=== PATIENT | female | born 1950 | race African-American/Black ===

== ENCOUNTER 2018-01-19 09:24 | Day surgery (SDC) | payer OTHER ==
[~2018-01-19 09:24] MED LIST: MORPHINE SULFATE 4 MG/ML DISP.SYRIN. IV; PROCHLORPERAZINE 10 MG/2 ML VIAL. IV; fentaNYL PF VIAL 100 MCG/2 ML VIAL IV
[2018-01-19] MEDS: IV RINGERS,LACTATED 1000ML 1,000 ML IV (10:18)
[2018-01-19] MEDS ORDERED: SEVOFLURANE > 120 MINUTES. IH (10:39)
[2018-01-19] MEDS ORDERED: fentaNYL PF VIAL 100 MCG/2 ML VIAL ×2 (10:40→14:00)
[2018-01-19] MEDS ORDERED: KETOROLAC 30 MG/ML INJ FOR OR. INJ (10:40)
[2018-01-19] MEDS ORDERED: PROPOFOL 20 ML IV (10:40)
[2018-01-19] MEDS ORDERED: MIDAZOLAM HCL/PF 2 MG/2 ML VIAL. (10:40)
[2018-01-19] MEDS ORDERED: ONDANSETRON PF 4 MG/2 ML VIAL. (10:40)
[2018-01-19] MEDS ORDERED: LIDOCAINE 2% PF Vial for OR 5 ML VIAL. (10:40)
[2018-01-19] MEDS ORDERED: DEXAMETHASONE SOD PHOS 20 MG/5 ML VIAL. (10:40)
[2018-01-19] MEDS ORDERED: IV RINGERS,LACTATED 1000ML 1,000 ML IV (11:14)
[2018-01-19] MEDS ORDERED: LIDOCAINE 1% PF 2 ML VIAL. ID (11:15)
[2018-01-19] MEDS ORDERED: HYDROmorphone 2 MG/ML VIAL IV (11:15)
[2018-01-19] MEDS ORDERED: MORPHINE SULFATE 2 MG/ML DISP.SYRIN. IV (11:15)
[2018-01-19] MEDS ORDERED: ONDANSETRON PF 4 MG/2 ML VIAL. IV (11:15)
[2018-01-19] MEDS ORDERED: fentaNYL PF VIAL 100 MCG/2 ML VIAL IV ×2 (11:15)
[2018-01-19] MEDS ORDERED: PROCHLORPERAZINE 10 MG/2 ML VIAL. IV (11:15)
[2018-01-19] MEDS: METHYLENE BLUE 1% 10 ML VIAL. (12:16)
[2018-01-19] MEDS ORDERED: ePHEDrine PF IN SALINE 50 MG/5 ML DISP.SYRIN IV (12:44)
[2018-01-19] MEDS: LIDOCAINE 1% PF 2 ML VIAL. ID (13:43)
[2018-01-19] MEDS: ONDANSETRON PF 4 MG/2 ML VIAL. IV (13:46)
[2018-01-19] MEDS: fentaNYL PF VIAL 100 MCG/2 ML VIAL IV (14:06)
== END 2018-01-19 15:30 | disposition home or self-care (01) ==
LOC: SURG 09:24
DX: N60.31 Fibrosclerosis of right breast (principal); N60.81 Other benign mammary dysplasias of right breast; I10 Essential (primary) hypertension; K21.9 Gastro-esophageal reflux disease without esophagitis; E66.9 Obesity, unspecified; Z90.710 Acquired absence of both cervix and uterus; Z98.890 Other specified postprocedural states; Z79.899 Other long term (current) drug therapy
CPT/HCPCS: 19120; 88305; J0690; J1100; J1885; J2250; J2405; J2704; J3010; Q9968

== ENCOUNTER 2021-03-18 08:11 | Day surgery (SDC) | payer MEDICARE ==
[~2021-03-18] VITALS: Ht 160 cm; Wt 94.0 kg
[~2021-03-18 08:11] MED LIST changes: +AMLO-186 PO; +ASPI-482 PO; +CHOL100013 PO; -MORPHINE SULFATE 4 MG/ML DISP.SYRIN. IV; +OMEG100020 PO; -PROCHLORPERAZINE 10 MG/2 ML VIAL. IV; +ceFAZolin SODIUM IV Push 1 GM VIAL. IVP PRN; -fentaNYL PF VIAL 100 MCG/2 ML VIAL IV
[2021-03-18 08:47] VITALS: BP 124/57
[2021-03-18] MEDS ORDERED: SCOPOLAMINE 1.5MG PATCH. TD ONE (09:00)
[2021-03-18] MEDS ORDERED: IV RINGERS,LACTATED 1000ML 1,000 ML IV SCH ×2 (09:00→12:45)
[2021-03-18] MEDS ORDERED: BUPIVACAINE-EPI 0.5%-1:200000 MPF 30 ML VIAL. ONE (09:18)
--- NOTE | 2021-03-18 09:31 | PREOP HP ---
DATE OF SERVICE: 03/18/2021 HISTORY OF PRESENT ILLNESS: The patient is referred because of masses of the anterior chest wall. The patient has noted these and these are becoming more painful and more numerous. You cannot see them through the skin, but it definitely are there and does cause her some discomfort. PAST MEDICAL HISTORY: Shows normal childhood diseases. She has hypertension, but does not have diabetes or other illnesses to her knowledge. PAST SURGICAL HISTORY: Included a right breast biopsy, which was benign and reduction mammoplasty. ALLERGIES: She does not have allergies. MEDICATIONS: She is not taking any other medicines, though she may begin to take some medicine for anxiety as she has some family members with significant illnesses. Otherwise, she is doing relatively well. She is concerned about these painful masses of the anterior chest wall. SOCIAL HISTORY: Shows that she does not smoke, drink or use illicit drugs, but did take aspirin, but has stopped taking that. FAMILY HISTORY: Positive in that she has been having 2 sisters with breast cancer, one is dealing with now. Otherwise, history was noncontributory. REVIEW OF SYSTEMS: Basically negative since she is doing well except for these masses of the anterior chest wall over and on each side of the sternum, going down to the xiphoid. As stated before, these are not skin eruptions, but under the skin. PHYSICAL EXAMINATION: GENERAL: Shows an alert female in no acute distress. HEAD, EYES, EARS, NOSE AND THROAT: Grossly normal. EXTREMITIES: Examination of extremities grossly normal. BREASTS: Unremarkable except for the scars of the previous surgery. Axilla was negative as stated before. CHEST: Clear to auscultation bilaterally. HEART: Had no murmurs, heaves, friction rubs or thrills, and the rate was 75 beats per minute and regular. SKIN: Grossly normal. The anterior chest wall; however, did have on either side of the sternum, about inch below the sternal notch. There are masses, 1 or 2 on either side and about 2-3 cm in size and also has a large wound over the xiphoid which is about 2 cm or more in size. She definitely has these lesions that are present there in the subcutaneous, was deep to the skin and are painful. There is no evidence of infection, however. IMPRESSION: 1. Hypertension. 2. Masses anterior chest wall. AL/JACKY DR: Milka TID: [id number]
--- NOTE | 2021-03-18 10:43 | PDOC ---
SURGICAL PROGRESS NOTE DATE: 03/18/21 TIME: 10:42 No change in dictated H&P. Vital Signs Vital Signs Date Time Temp Pulse Resp B/P (MAP) Pulse Ox O2 Delivery O2 Flow Rate FiO2 03/18/21 08:53 97.1 74 18 124/57 98 Room Air 97.1 Justicifation of Admission Dx: Justifications for Admission: Justification of Admission Dx: Yes BORIS ROY MD Mar 18, 2021 10:43
--- NOTE | 2021-03-18 10:45 | PDOC ---
SURGICAL PROGRESS NOTE DATE: 03/18/21 TIME: 10:43 Op Note: Surgeon.........................................Emir Pre and post op diag........................Masses sub cut sternum and right UOQ breast Anesthesia.....................................general Procedure.......................................excision mass sternum and left chest wall. Drains...........................................none Fluids............................................see anesth sheet Blood loss......................................10cc condition.......................................satisfactory Vital Signs Vital Signs Date Time Temp Pulse Resp B/P (MAP) Pulse Ox O2 Delivery O2 Flow Rate FiO2 03/18/21 08:53 97.1 74 18 124/57 98 Room Air 97.1 Justicifation of Admission Dx: Justifications for Admission: Justification of Admission Dx: Yes BORIS ROY MD Mar 18, 2021 10:45
[2021-03-18] MEDS ORDERED: fentaNYL PF VIAL 100 MCG/2 ML VIAL ONE ×3 (10:52→13:26)
[2021-03-18] MEDS ORDERED: DEXAMETHASONE SOD PHOS 4 MG/ML VIAL ONE (11:07)
[2021-03-18] MEDS ORDERED: PROPOFOL 10 MG/ML (20ML) VIAL. IV ONE (11:07)
[2021-03-18] MEDS ORDERED: LIDOCAINE 2% PF 5 ML VIAL. ONE (11:07)
[2021-03-18] MEDS ORDERED: ONDANSETRON PF 4 MG/2 ML VIAL. ONE ×2 (11:07→12:52)
[2021-03-18] MEDS ORDERED: SEVOFLURANE 61 TO 120 MINUTES. IH ONE (11:07)
[2021-03-18] MEDS ORDERED: PHENYLEPHRINE in 0.9% NACL PF 1 MG/10 ML SYRINGE. IV ONE (11:07)
[2021-03-18 11:51] LABS: BASO # 0.1 x10^3/uL (0.0-0.2); BASO % 1 % (0-3); EOS # 0.1 x10^3/uL (0.0-0.7); EOS % 2 % (0-3); HEMATOCRIT 40.2 % (36.0-47.0); HEMOGLOBIN 13.2 g/dL (12.0-15.5); LYMPH # 2.2 x10^3/uL (1.0-4.8); LYMPH % 40 % (24-48); MEAN CORPUSCULAR HEMOGLOBIN 29 pg (25-35); MEAN CORPUSCULAR HGB CONC 33 g/dL (31-37); MEAN CORPUSCULAR VOLUME 88 fL (79-100); MONO # 0.5 x10^3/uL (0.0-1.1); MONO % 9 % (0-9); NEUT # 2.6 x10^3/uL (1.8-7.7); NEUT % 48 % (31-73); PLATELET COUNT 257 x10^3/uL (140-400); RED BLOOD COUNT 4.57 x10^6/uL (3.50-5.40); RED CELL DISTRIBUTION WIDTH 14.1 % (11.5-14.5); WHITE BLOOD COUNT 5.4 x10^3/uL (4.0-11.0)
[2021-03-18 12:02] LABS: CALCIUM 8.7 mg/dL (8.5-10.1); CREATININE 0.7 mg/dL (0.6-1.0); GFR 100.1; POTASSIUM 3.9 mmol/L (3.5-5.1)
[2021-03-18 12:08] LABS: ALBUMIN 3.8 g/dL (3.4-5.0); ALBUMIN/GLOBULIN RATIO 1.1 (1.0-1.7); TOTAL BILIRUBIN 0.3 mg/dL (0.2-1.0); TOTAL PROTEIN 7.4 g/dL (6.4-8.2)
--- NOTE | 2021-03-18 12:31 | DISCH ---
DISCHARGE INSTRUCTIONS Condition on Discharge Condition on Discharge: Stable Activity After Discharge Activity Instructions for Disc: Avoid exertion Diet after Discharge Additional Diet Restrictions: clear liquids x 24 hours then pre op diet Wound Incision Care Other wound/incision instructi: chente wounds dry and clean Follow-Up Follow up with: call and make appt to see Dr. richter 1 week BORIS RICHTER MD Mar 18, 2021 12:31
[2021-03-18] MEDS ORDERED: PROCHLORPERAZINE 10 MG/2 ML VIAL. ONE (12:36)
[2021-03-18] MEDS ORDERED: fentaNYL PF VIAL 100 MCG/2 ML VIAL IVP PRN (12:45)
[2021-03-18] MEDS ORDERED: MORPHINE SULFATE 2 MG/ML VIAL. IVP PRN (12:45)
[2021-03-18] MEDS ORDERED: HYDROmorphone 2 MG/ML VIAL IVP PRN (12:45)
[2021-03-18] MEDS: PROCHLORPERAZINE 10 MG/2 ML VIAL. IVP PRN ×2 (12:46→12:57)
[2021-03-18] MEDS: fentaNYL PF VIAL 100 MCG/2 ML VIAL IVP PRN ×3 (12:46→13:28)
[2021-03-18] MEDS ORDERED: ONDANSETRON PF 4 MG/2 ML VIAL. IVP ONE (13:00)
[2021-03-18] MEDS ORDERED: HYDROcodone/APAP 5/325MG 1 TAB TABLET ONE (13:20)
[2021-03-18 13:30] VITALS: BP 111/91
[2021-03-18] MEDS ORDERED: HYDROcodone/APAP 5/325MG 1 TAB TABLET PO ONE (13:30)
--- NOTE | 2021-03-19 13:42 | OP ---
DATE OF SURGERY: 03/18/2021 INDICATIONS FOR PROCEDURE: The patient has had these masses, which have increased in size and she has seen her primary care doctor and was [place] and treatment. PAST MEDICAL HISTORY: Shows that the patient has had a breast reduction, right breast biopsy and has noted these masses for some time. SURGEON: Brenden iFeld MD PREOPERATIVE DIAGNOSIS: Masses in the anterior chest wall and left axilla. POSTOPERATIVE DIAGNOSIS: Masses in the anterior chest wall and left axilla. ANESTHESIA: General. PROCEDURE: Wide excision 3 masses of the presternal area and 1 in the axillary area. All in the subcutaneous. The external masses were identified. They had been marked preoperatively and the 3 largest were removed. There was 1 about an inch or two below the xiphoid, one about 1/2 inch below it and another one below it down toward the xiphoid. The lower one was about 3.5-4 cm and the other two were about 2 cm in size. They were all removed in a similar fashion as the skin was incised over the lesions encompassing a fusiform portion of skin. These were not epidermoid cyst; however, we thought it would better able to dissect these masses doing this. As such, we used a 15 blade after the area had been properly prepped and draped in routine fashion using Betadine solution. Inferior lesion was removed first and this was just a little above the xiphoid as the incision was made. Once we got through the skin with a 15 blade, we put up on the skin edge using Metzenbaum scissors and also sent retractors, we were able to slowly use a mesh to completely remove the mass in toto. These were whitish in color in the subcutaneous. The other 2 lesions more superior were removed in a likewise fashion. The wounds were then irrigated before closure and 3-0 and 4-0 Vicryl was used to approximate the deep subcutaneous and deep dermis. 5-0 nylon interrupteds were used to close the wound and a sterile Tegaderm dressing was applied. The left axillary area was the anterior portion of the axillary area. There was a clearly palpable mass there. We made an incision over the mass, carried down through the subcutaneous and then using Metzenbaum scissors, cut the mass entirely, removed from the patient. The resultant defect was inspected, irrigated with saline and then approximated the deeper tissues using 4 interrupted Vicryl. The skin was closed using a subcuticular 5-0 Vicryl. The procedure was now terminated as sterile Tegaderm dressing was placed over the sternum and a regular dressing sterile placed over the axillary area. The procedure now had been terminated. The blood loss was probably 10 mL or less. Fluids given can be obtained from the anesthesia sheet. No drains were used and the condition of the patient satisfactory as we removed these lesions in total getting about 1/4 inch margins around each lesion. The procedure was now terminated. Condition of the patient is satisfactory. It should be noted that fluids given can be obtained from the anesthesia sheet AL/ISAIAH/DARREN DR: Milka TID: [id number]
--- NOTE | 2021-03-19 18:06 | PATHOLOGY ---
[facility] Accession Number: [id number] . 01 Material submitted: . PART A: chest - LOWER CHEST MASS. Modifiers: lower PART B: chest - MIDDLE CHEST MASS. Modifiers: middle PART C: chest - UPPER CHEST WALL MASS. Modifiers: upper PART D: axilla - LEFT AXILLARY MASS. Modifiers: left . 01 Clinical history: . STEATOCYSTOMA EXCISION OF MASSES ANTERIOR CHEST WALL . 02 Diagnosis: A. Skin and subcutaneous tissue, lower chest mass: - Epidermal inclusion cyst, focally ruptured, with chronic and granulomatous inflammation. . B. Skin and subcutaneous tissue, middle chest mass: - Benign cyst lined by chronic and granulomatous inflammation, consistent with ruptured cyst. . C. Skin and subcutaneous tissue, upper chest wall mass: - Benign fibrous walled cyst showing focal chronic and granulomatous inflammation, consistent with ruptured cyst. . D. Fibroadipose tissue, left axillary mass: - Benign thin walled cyst consistent with steatocystoma. . (JPM:mml; 03/19/2021) [facility] 03/19/2021 1639 Local . 02 Comment: There is no evidence of malignancy. . (JPM:mml; 03/19/2021) . 02 Electronically signed: . Fortino Ugalde MD, Pathologist NPI- [id number] . 01 Gross description: . A. Received in formalin labeled "Nelida Rodriguez, lower chest mass" is a pink-street rubbery soft tissue mass measuring 2.1 x 2.1 x 1.7 cm with an attached ellipse of street-white skin measuring 2.5 x 0.8 x 0.3 cm. The external surface is inked black. The specimen is sectioned to reveal a cystic cut surface containing street-brown amorphous material. Community Director tissue is submitted in cassette A1. . B. Received in formalin labeled "Nelida Rodriguez, middle chest mass" is an intact street-white cystic structure measuring 2.8 x 1.6 x 1.2 cm with an attached ellipse of street-white skin measuring 2.3 x 0.5 x 0.3 cm. The specimen is sectioned to reveal that the cyst contains street-yellow amorphous material. Community Director tissue is submitted in cassette B1. . C. Received in formalin labeled "Nelida Rodriguez, upper chest wall mass" is a previously opened street-yellow cystic structure with attached soft tissue measuring 2.5 x 1.8 x 1.2 cm with an attached ellipse of street-white skin measuring 2.4 x 1.0 x 0.3 cm. The specimen is sectioned to reveal that the cyst contains street-yellow amorphous material. Community Director tissue is submitted in cassette C1. . D. Received in formalin labeled "Nelida Rodriguez, left axillary mass" is an intact street-white cystic nodule measuring 1.4 x 1.1 x 0.9 cm. The specimen is bisected to reveal that the cyst contains street-white amorphous material. The specimen is submitted entirely in cassette D1. ([facility]; 03/18/2021) [facility] 03/18/2021 1744 Local . 02 Pathologist provided ICD-10: L72.0, L98.9 . 02 CPT . 085065, 148779, [id number], 119064 Specimen Comment: A courtesy copy of this report has been sent to [phone], [phone] Specimen Comment: [phone] Specimen Comment: Report sent to / DR PHILLIPS Performed at: 01 [facility] [address], [place] [id number] MD Dimas Landon MD Phone: [phone] Performed at: 02 [facility] [address], [place] [id number] MD Fortino Ugalde MD Phone: [phone]
== END 2021-03-18 14:00 | disposition home or self-care (01) ==
LOC: SURG 08:11
PROVIDERS: ATTEND Specialist
DX: L72.0 Epidermal cyst (principal); L98.9 Disorder of the skin and subcutaneous tissue, unspecified; I10 Essential (primary) hypertension; E66.9 Obesity, unspecified; K21.9 Gastro-esophageal reflux disease without esophagitis; Z90.710 Acquired absence of both cervix and uterus; Z98.890 Other specified postprocedural states; Z79.899 Other long term (current) drug therapy
CPT/HCPCS: 11402; 11403; 36415; 80053; 85025; A4930; J0690; J0780; J1100; J2370; J2405; J2704; J3010; 88304